=== PATIENT | male | born 1965 | race Hispanic/Latino ===

== ENCOUNTER 2017-05-04 12:50 | Emergency (ER) | payer SELFPAY ==
[~2017-05-04 12:50] MED LIST: LISINOP/HCTZ1 TA1 PO; ULTRAM50 M1 OR
[2017-05-04] MEDS ORDERED: MOTRIN800 MG PO (13:06)
[2017-05-04 13:14] VITALS: BP 129/74
== END 2017-05-04 13:14 | disposition home or self-care (01) | DRG 563 ==
LOC: ED 12:50
DX: S83.411A Sprain of medial collateral ligament of right knee, initial encounter (principal); M25.561 Pain in right knee; W19.XXXA Unspecified fall, initial encounter; X50.1XXA Overexertion from prolonged static or awkward postures, initial encounter; Y93.9 Activity, unspecified; Y92.9 Unspecified place or not applicable

== ENCOUNTER 2019-01-17 22:41 | Emergency (ER) | payer SELFPAY ==
[~2019-01-17] VITALS: Ht 154.9 cm; Wt 94.0 kg
[~2019-01-17 22:41] MED LIST changes: +MOTRIN800 MG PO
[2019-01-18] MEDS ORDERED: IBUPROFEN600 MG PO (01:24)
[2019-01-18 01:40] VITALS: BP 120/65
== END 2019-01-18 01:40 | disposition home or self-care (01) | DRG 556 ==
LOC: ED 22:41
DX: M25.531 Pain in right wrist (principal); I10 Essential (primary) hypertension; F17.210 Nicotine dependence, cigarettes, uncomplicated

== ENCOUNTER 2019-02-08 13:24 | Emergency (ER) | payer SELFPAY ==
[~2019-02-08] VITALS: Ht 154.9 cm; Wt 80.0 kg
[~2019-02-08 13:24] MED LIST changes: +IBUPROFEN600 MG PO
[2019-02-08 14:54] LABS: URINE BILIRUBIN - DIPSTICK NEGATIVE (NEGATIVE); URINE BLOOD DIPSTICK NEGATIVE (NEGATIVE); URINE COLOR YELLOW; URINE GLUCOSE - DIPSTICK 100 mg/dL (NEGATIVE); URINE KETONE NEGATIVE (NEGATIVE); URINE LEUK ESTERASE NEGATIVE (NEGATIVE); URINE NITRITE - DIPSTICK NEGATIVE (Negative); URINE PROTEIN - DIPSTICK NEGATIVE (NEG-TRACE); URINE SPECIFIC GRAVITY 1.015; URINE UROBILINOGEN - DIPSTICK 0.2 E.U./dL (0.2)
[2019-02-08] MEDS ORDERED: KEFLEX500 M1 PO (15:11)
[2019-02-08] MEDS ORDERED: PYRIDIUM200 MG PO (15:11)
[2019-02-08] MEDS ORDERED: LISINOPRIL40 MG PO (15:12)
[2019-02-08] MEDS ORDERED: HYDROCHLOROT25 MG PO (15:12)
[2019-02-08] MEDS ORDERED: LOVASTATIN20 M1 PO (15:13)
[2019-02-08 15:18] VITALS: BP 138/65
== END 2019-02-08 15:18 | disposition home or self-care (01) | DRG 730 ==
LOC: ED 13:24
PROVIDERS: Emergency Medicine
DX: N50.811 Right testicular pain (principal); I10 Essential (primary) hypertension; F17.210 Nicotine dependence, cigarettes, uncomplicated